=== PATIENT | female | born 1965 | race Caucasian/White ===

== ENCOUNTER 2018-11-01 21:49 | Emergency (ER) | payer SELFPAY ==
[2018-11-01] MEDS ORDERED: cloNIDine 0.1 MG Tab PO ONE ×2 (22:01→22:22)
[2018-11-01] MEDS ORDERED: Ondansetron 4 MG/2 ML SDV IVPUSH ONE (22:02)
[2018-11-01] MEDS ORDERED: HYDROmorphone 1 MG/ML Syringe IVPUSH ONE (22:02)
--- NOTE | 2018-11-01 22:21 | EDM.PDOC ---
ED HPI GENERAL MEDICAL PROBLEM - General Chief Complaint: Back Pain or Injury Stated Complaint: BACK PAIN Time Seen by Provider: 11/01/18 22:01 Source of Information: Reports: Patient History Limitations: Reports: No Limitations - History of Present Illness INITIAL COMMENTS - FREE TEXT/NARRATIVE: This is a 53-year-old female. Onset of mid back pain gradual onset yesterday around 3 PM that has gotten progressively worse. She states it feels like she is having labor pains that is crampy and severe. She doesn't say it feels like it's tearing but it does come and go wax and wane and takes her breath away when it's bad. She apparently has had this in the past was seen here in the ER last year and given some muscle relaxers but she doesn't remember if they helped or not. She is supposed to be on blood pressure medications but hasn't taken them for quite some time. When she first arrived in the ER her blood pressure was 246/110. Denies any recent history of trauma. Her history is somewhat vague and she says she's had this pain several times in the past but hasn't really seen anybody for it other than coming to the ER last year. Patient indicates the pain does not radiate into the front of her chest or any other to the side of her abdomen is just in the mid back area. 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: Endocrine/Metabolic History: Reports: Hypothyroidism (Nazanin's thyroiditis, untreated) Other Endocrine/Metabolic History: nazanin's - Infectious Disease History Infectious Disease History: Reports: Chicken Pox - Past Surgical History GI Surgical History: Reports: Appendectomy (13 years old), Bariatric Procedure ( sleeve gastrectomy 2014), Cholecystectomy (1995) Female Surgical History: Reports: Tubal Ligation (1995) Dermatological Surgical History: Reports: Other (See Below) (Lipoma excised from anterior neck) Social & Family History - Family History Family Medical History: Noncontributory - Caffeine Use Caffeine Use: Reports: Coffee - Living Situation & Occupation Living situation: Reports: Single, Other (With roommates) 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) ED ROS GENERAL - Review of Systems Review Of Systems: See Below Constitutional: Denies: Fever, Chills HEENT: Reports: No Symptoms Respiratory: Reports: No Symptoms Cardiovascular: Denies: Chest Pain Endocrine: Reports: No Symptoms GI/Abdominal: Denies: Abdominal Pain : Reports: No Symptoms Musculoskeletal: Reports: Back Pain Skin: Reports: No Symptoms Neurological: Reports: No Symptoms Psychiatric: Reports: No Symptoms Hematologic/Lymphatic: Reports: No Symptoms ED EXAM, UPPER BACK/NECK PAIN - Physical Exam Exam: See Below Exam Limited By: No Limitations General Appearance: Alert, WD/WN, Mild Distress Eye Exam: Bilateral Eye: Normal Inspection Ears Exam: Normal External Exam Nose Exam: Normal Inspection Throat/Mouth Exam: Normal Inspection, Normal Voice, No Airway Compromise Head Exam: Normocephalic Neck Exam: Full Range of Motion Cardiovascular/Respiratory: Regular Rate, Rhythm, No M/R/G GI/Abdominal: Soft, Non-Tender, Other (No bruits are noted). No: Distended, Guarding, Rigid, Rebound Back Exam: Other (He moves fairly effortlessly but her pain appears to be in the lower thoracic mid back area, when I palpate her paraspinal muscles in the thoracic spine and midline spine I cannot reproduce any pain that she is having she says occasionally really touch it from the outside it seems like it's more on the inside, she is able to sit up in bed and move around but she feels more comfortable lying down) Extremities: Normal Inspection, Normal Range of Motion Neurologic: Alert, Oriented x 3 Psychiatric: Anxious Skin Exam: Normal Color, Warm/Dry Course - Vital Signs Last Recorded V/S: Last Vital Signs Temp 97.6 F 11/01/18 21:56 Pulse 67 11/01/18 23:36 Resp 16 11/01/18 23:36 BP 139/74 11/01/18 23:36 Pulse Ox 91 L 11/01/18 23:36 - Orders/Labs/Meds Orders: Active Orders 24 hr Category Date Time Status Chest Abdomen Pelvis w Cont [CT] Stat Exams 11/01/18 22:14 Taken Sodium Chloride 0.9% [Normal Saline] 100 ml Med 11/01/18 22:45 Active IV ASDIRECTED Medication Orders Sodium Chloride (Normal Saline) 100 mls @ 4 mls/sec IV ASDIRECTED ALLEN Last Admin: 11/01/18 22:54 Dose: 4 mls/sec Labs: Laboratory Tests 11/01/18 11/01/18 11/01/18 Range/Units 22:20 22:20 22:30 WBC 5.94 (3.98-10.04) K/mm3 RBC 5.27 H (3.98-5.22) M/mm3 Hgb 11.5 (11.2-15.7) gm/L Hct 37.6 (34.1-44.9) % MCV 71.3 L (79.4-94.8) fl MCH 21.8 L (25.6-32.2) pg MCHC 30.6 L (32.2-35.5) g/dl RDW Std Deviation 39.6 (36.4-46.3) fL Plt Count 334 (182-369) K/mm3 MPV 10.4 (9.4-12.3) fl Neut % (Auto) 58.9 (34.0-71.1) % Lymph % (Auto) 28.5 (19.3-51.7) % Eddy % (Auto) 8.6 (4.7-12.5) % Eos % (Auto) 3.5 (0.7-5.8) Baso % (Auto) 0.3 (0.1-1.2) % Neut # (Auto) 3.50 (1.56-6.13) K/mm3 Lymph # (Auto) 1.69 (1.18-3.74) K/mm3 Eddy # (Auto) 0.51 H (0.24-0.36) K/mm3 Eos # (Auto) 0.21 (0.04-0.36) K/mm3 Baso # (Auto) 0.02 (0.01-0.08) K/mm3 Manual Slide Review Abnormal smear Sodium 139 (136-145) mEq/L Potassium 4.0 (3.5-5.1) mEq/L Chloride 101 (98-107) mEq/L Carbon Dioxide 27 (21-32) mEq/L Anion Gap 15.0 (5-15) BUN 20 H (7-18) mg/dL Creatinine 0.9 (0.55-1.02) mg/dL Est Cr Clr Drug Dosing 56.52 mL/min Estimated GFR (MDRD) > 60 (>60) mL/min BUN/Creatinine Ratio 22.2 H (14-18) Glucose 86 (74-106) mg/dL Lactic Acid 1.3 (0.4-2.0) mmol/L Calcium 9.6 (8.5-10.1) mg/dL Total Bilirubin 0.3 (0.2-1.0) mg/dL AST 23 (15-37) U/L ALT 27 (14-59) U/L Alkaline Phosphatase 78 (46-116) U/L Total Protein 8.0 (6.4-8.2) g/dl Albumin 4.0 (3.4-5.0) g/dl Globulin 4.0 gm/dL Albumin/Globulin Ratio 1.0 (1-2) Lipase 588 H (73-393) U/L Meds: Medications Generic Name Dose Route Start Last Admin Trade Name Freq PRN Reason Stop Dose Admin Sodium Chloride 100 mls @ 4 mls/sec 11/01/18 22:45 11/01/18 22:54 Normal Saline IV 4 mls/sec ASDIRECTED ALLEN Administration Discontinued Medications Generic Name Dose Route Start Last Admin Trade Name Bebetoq PRN Reason Stop Dose Admin Clonidine HCl 0.3 mg 11/01/18 22:01 Catapres PO 11/01/18 22:02 ONETIME ONE Clonidine HCl 0.2 mg 11/01/18 22:22 11/01/18 22:37 Catapres PO 11/01/18 22:23 0.2 mg NOW ONE Administration Hydromorphone HCl 0.5 mg 11/01/18 22:02 11/01/18 22:36 Dilaudid IVPUSH 11/01/18 22:03 0.5 mg ONETIME ONE Administration Iopamidol 100 ml 11/01/18 22:25 11/01/18 22:53 Isovue-370 (76%) IV 11/01/18 22:26 100 ml ONETIME ONE Administration Ondansetron HCl 4 mg 11/01/18 22:02 11/01/18 22:36 Zofran IVPUSH 11/01/18 22:03 4 mg ONETIME ONE Administration Ondansetron HCl Confirm 11/01/18 22:32 11/01/18 22:38 Zofran Administered 11/01/18 22:33 Not Given Dose 4 mg .ROUTE .[employer] ONE - Radiology Interpretation Free Text/Narrative:: CT scan of the chest and abdomen with IV contrast does not show any acute abnormalities. Her aorta is completely normal her pancreas does not show any significant inflammation there is no obstructing stones she does have a uterine fibroid but no other acute findings. - Re-Assessments/Exams Free Text/Narrative Re-Assessment/Exam: 11/01/18 23:54 The patient is feeling much better not really having any pain presently. I spoke to her regarding the CT scan as well as her lab work that showed an elevated lipase. She did have a small amount of alcohol this evening but she says she normally doesn't drink. I am comfortable letting her go home but I encouraged her to follow up with her doctor for blood pressure medications since it was markedly elevated when she first came to the ER. I also suggested she not drink anymore alcohol on the off chance that the alcohol might have caused a mild pancreatitis causing her pain. She understands. Departure - Departure Time of Disposition: 23:55 Disposition: Home, Self-Care 01 Condition: Good Clinical Impression: Elevated lipase, Elevated blood pressure reading Pancreatitis Qualifiers: Chronicity: acute Pancreatitis type: unspecified pancreatitis type Acute pancreatitis complication: unspecified Qualified Code(s): K85.90 - Acute pancreatitis without necrosis or infection, unspecified Thoracic back pain Qualifiers: Chronicity: acute Back pain laterality: midline Qualified Code(s): M54.6 - Pain in thoracic spine - Discharge Information *PRESCRIPTION DRUG MONITORING PROGRAM REVIEWED*: Not Applicable *COPY OF PRESCRIPTION DRUG MONITORING REPORT IN PATIENT VESTA: Not Applicable Instructions: Acute Pancreatitis, [id number] Referrals: Misha Clemons PA-C [Physician Single Pointed Operator] - Forms: ED Department Discharge Additional Instructions: Rest and sleep as much as possible, take some Tylenol if needed for the pain, no more alcohol until you can see your doctor for reevaluation, you will also need to see your doctor for your blood pressure medications, call the number that we gave you to see if they can help to get some Medicaid insurance, return to the ER if needed - My Orders Last 24 Hours: My Active Orders 11/01/18 22:14 Chest Abdomen Pelvis w Cont [CT] Stat 11/01/18 22:45 Sodium Chloride 0.9% [Normal Saline] 100 ml IV ASDIRECTED - Assessment/Plan Last 24 Hours: My Active Orders 11/01/18 22:14 Chest Abdomen Pelvis w Cont [CT] Stat 11/01/18 22:45 Sodium Chloride 0.9% [Normal Saline] 100 ml IV ASDIRECTED
[2018-11-01] MEDS ORDERED: Iopamidol 755 Mg/ML 200 ML Bottle IV ONE (22:25)
[2018-11-01] MEDS ORDERED: Ondansetron 4 MG/2 ML SDV ONE (22:32)
[2018-11-01] MEDS ORDERED: Sodium Chloride 0.9% 100 ML IV SCH (22:45)
--- NOTE | 2018-11-03 17:56 | CT ---
CT chest Technique: Multiple axial sections through the chest were obtained. Intravenous contrast was utilized. Comparison: No prior chest imaging. Findings: Aorta shows no dissection or aneurysm. Ascending aorta is slightly ectatic with AP dimension of 3.2 cm. Pulmonary arteries show normal opacification. Mediastinum and hilar regions show no adenopathy. No pericardial thickening is seen. Lungs are clear. No acute parenchymal change is seen. No pleural effusions or pneumothorax is seen. Bone window settings were reviewed which show no acute osseous abnormality. Impression: 1. Nothing acute is seen on CT study of the chest. Diagnostic code #2 I agree with preliminary report issued by [facility] ([facility] preliminary report dictated on 11/02/18, 12:46 AM Central Time) CT abdomen and pelvis Technique: Multiple axial sections were obtained from above the dome of the diaphragm inferiorly to the pubic symphysis. Intravenous contrast was utilized. No oral contrast has been given. Comparison: No prior abdominal imaging is available. Findings: Small hiatal hernia is seen. Aorta shows no aneurysm. No dissection is seen. Liver contains no focal abnormality. Surgical clips are seen from prior cholecystectomy. Spleen appears within normal limits. Adrenal glands show no nodule. Pancreas appears within normal limits. Kidneys show symmetric contrast enhancement without hydronephrosis or mass. No retroperitoneal adenopathy or mesenteric abnormalities are seen. Enlarged uterus is seen likely representing fibroid change. No free fluid or inflammatory change is seen. Bone window settings were reviewed which show disc space narrowing at L4-L5. Incidental surgical clips are seen within the pelvis. Impression: 1. Incidental findings. Nothing acute is identified on CT study of the abdomen and pelvis. Nothing acute is identified. Diagnostic code #2 I agree with preliminary report issued by [facility] ([facility] preliminary report dictated on 11/02/18, 12:46 AM Central Time)
== END 2018-11-02 00:12 | disposition home or self-care (01) ==
LOC: JD.ED 21:49
DX: K85.90 Acute pancreatitis without necrosis or infection, unspecified (principal); M54.6 Pain in thoracic spine; R79.89 Other specified abnormal findings of blood chemistry; I10 Essential (primary) hypertension; E03.9 Hypothyroidism, unspecified; Z88.5 Allergy status to narcotic agent; Z79.899 Other long term (current) drug therapy
CPT/HCPCS: 36415; 71260; 74177; 80053; 83605; 83690; 85025; 96374; 96375; 99284; A9270; J1170; J2405; J7030; Q9967

== ENCOUNTER 2019-06-01 13:58 | Emergency (ER) | payer MEDICAID ==
[2019-06-01] MEDS ORDERED: HYDROmorphone 0.5 MG/0.5 ML Syringe IM ONE (14:31)
--- NOTE | 2019-06-01 14:48 | EDM.PDOC ---
ED HPI GENERAL MEDICAL PROBLEM - General Chief Complaint: Upper Extremity Injury/Pain Stated Complaint: LT ARM INJURY Time Seen by Provider: 06/01/19 14:08 Source of Information: Reports: Patient, RN Notes Reviewed History Limitations: Reports: No Limitations - History of Present Illness INITIAL COMMENTS - FREE TEXT/NARRATIVE: Patient is a 53-year-old female who presents to the ED for evaluation of left shoulder injury. The patient states that roughly 3 hours ago, she was in her driveway walking, when she fell as she slipped on the ice. She notes that she fell onto her butt, and caught herself with both hands. At this time she did have instant pain into her left shoulder, she states that now when she moves her left arm, she can hear a pop. Patient does have tramadol at home, did try to take 1 of these for pain relief, and has been using a heating pad on the left shoulder, however this does not seem to be helping much. Patient notes that the arm feels best if she keeps her left elbow flexed in a 90 degree position, and keeps the arm close to her body. She denies any numbness or tingling distal to the injury, she did not hit her head, she has no elbow or neck pain and she did further denies any chest pain or shortness of breath. Patient notes that she already has a prior deficit in her right shoulder, where she has a rotator cuff tear. She notes that she is right-hand dominant. Her regular provider is Dr. Cedeno. 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: Endocrine/Metabolic History: Reports: Hypothyroidism Other Endocrine/Metabolic History: nazanin's - Infectious Disease History Infectious Disease History: Reports: Chicken Pox - Past Surgical History HEENT Surgical History: Reports: Other (See Below) Other HEENT Surgeries/Procedures: fatty tumor removed from throat GI Surgical History: Reports: Appendectomy, Bariatric Procedure, Cholecystectomy Female Surgical History: Reports: Tubal Ligation Dermatological Surgical History: Reports: Other (See Below) Social & Family History - Family History Family Medical History: Noncontributory - Tobacco Use Smoking Status *Q: Current Every Day Smoker Years of Tobacco use: 4 Packs/Tins Daily: 1 - Caffeine Use Caffeine Use: Reports: Coffee - Recreational Drug Use Recreational Drug Use: Yes Recreational Drug Type: Reports: Marijuana/Hashish Other Recreational Drug Type: She smokes one bowl every night. 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 Denies: Neck Pain, Arm Pain, Back Pain, Hand Pain, Joint Swelling (no obvious swelling to Left shoulder ) Skin: Denies: Bruising Neurological: Denies: Numbness, Tingling ED EXAM, GENERAL - Physical Exam Exam: See Below Exam Limited By: No Limitations General Appearance: Alert, WD/WN, No Apparent Distress Throat/Mouth: Normal Inspection, Normal Lips, Normal Teeth, Normal Gums, Normal Oropharynx, Normal Voice, No Airway Compromise Head: Atraumatic, Normocephalic Neck: Normal Inspection Respiratory/Chest: No Respiratory Distress, Lungs Clear, Normal Breath Sounds, No Accessory Muscle Use, Chest Non-Tender Cardiovascular: Normal Peripheral Pulses, Regular Rate, Rhythm, No Murmur Peripheral Pulses: 3+: Radial (L), Radial (R) Extremities: Normal Inspection, Normal Capillary Refill, Limited Range of Motion (of left shoulder d/t pain). No: Arm Pain Neurological: Alert, Oriented, Normal Cognition, No Motor/Sensory Deficits Psychiatric: Normal Affect, Normal Mood Skin Exam: Warm, Dry, Intact, Normal Color, No Rash Course - Vital Signs Last Recorded V/S: Last Vital Signs Temp 99.6 F 06/01/19 14:12 Pulse 92 06/01/19 14:12 Resp 18 06/01/19 14:12 BP 190/102 H 06/01/19 14:12 Pulse Ox 99 06/01/19 14:12 - Orders/Labs/Meds Orders: Active Orders 24 hr Category Date Time Status Shoulder Comp Lt [CR] Stat Exams 06/01/19 14:31 Ordered DME for Discharge [COMM] Routine Oth 06/01/19 14:49 Ordered Meds: Medications Discontinued Medications Generic Name Dose Route Start Last Admin Trade Name Radu PRN Reason Stop Dose Admin Hydromorphone HCl 0.5 mg 06/01/19 14:31 06/01/19 14:36 Dilaudid IM 06/01/19 14:32 0.5 mg ONETIME ONE Administration - Re-Assessments/Exams Free Text/Narrative Re-Assessment/Exam: 06/01/19 14:48 Patient presents to the ED for a left shoulder injury. X-rays were done, and demonstrate no obvious sign of any fracture or bony abnormality of the shoulder joint itself. AC joint also looks within normal limits. Shoulder does not look out of place at all. I did order 0.5 mg IM Dilaudid for pain management. Will have Dr. García look at the films, before we discharge the patient home. Departure - Departure Time of Disposition: 14:50 Disposition: Home, Self-Care 01 Condition: Fair Clinical Impression: Injury of left shoulder Qualifiers: Encounter type: initial encounter Qualified Code(s): S49.92XA - Unspecified injury of left shoulder and upper arm, initial encounter - Discharge Information *PRESCRIPTION DRUG MONITORING PROGRAM REVIEWED*: Yes *COPY OF PRESCRIPTION DRUG MONITORING REPORT IN PATIENT VESTA: No Instructions: How to Use a Sling, [id number] Referrals: Brian Cedeno MD [Primary Care Provider] - Forms: ED Department Discharge Additional Instructions: You have been evaluated in the ED for your left shoulder injury. Your x-ray demonstrated no obvious fracture or acute bony abnormality of the Left shoulder joint. Please use ice as tolerated to the affected area. You may take Tylenol 500 mg or ibuprofen 600mg q6 hrs for pain relief. Please do so until you have a tolerable level of pain with activity. Do not exceed 4000mg tylenol, Do not exceed 3200mg ibuprofen in a 24 hour time period. You were given a prescription for a strong pain medication, hydrocodone/ acetaminophen 5/325, please take 1 tab every 6 hours as needed for pain not relieved by Tylenol or ibuprofen alone. Please note this does contain Tylenol in it, so do not take more than 4000 mg in a 24-hour time span. These medications can be addictive, so please take as few as possible to achieve adequate pain control. These meds can also be quite constipating, recommend that you increase your oral fluid intake and take a stool softener like MiraLAX while taking these medications. Please call Ortho for follow-up and further evaluation Dr. Rosado is our orthopedic surgeon, his office number is [phone]. Please call and set up an appointment as soon as possible for further management. Please return to ED if your symptoms should change or worsen. - My Orders Last 24 Hours: My Active Orders 06/01/19 14:31 Shoulder Comp Lt [CR] Stat 06/01/19 14:49 DME for Discharge [COMM] Routine - Assessment/Plan Last 24 Hours: My Active Orders 06/01/19 14:31 Shoulder Comp Lt [CR] Stat 06/01/19 14:49 DME for Discharge [COMM] Routine
--- NOTE | 2019-06-02 09:12 | CR ---
Left shoulder: Three views of the left shoulder were obtained. Comparison: No prior shoulder imaging. Joint space narrowing is noted within the acromioclavicular joint with superior spurring and mild inferior spurring. No acute fracture, dislocation or other bony abnormality is identified. Impression: 1. Degenerative change within the acromioclavicular joint. 2. Left shoulder study is otherwise unremarkable. Diagnostic code #2 This report was dictated in [place] Standard Time
== END 2019-06-01 15:28 | disposition home or self-care (01) ==
LOC: JD.ED 13:58
DX: S49.92XA Unspecified injury of left shoulder and upper arm, initial encounter (principal); I10 Essential (primary) hypertension; F17.210 Nicotine dependence, cigarettes, uncomplicated; Z88.5 Allergy status to narcotic agent; Z79.899 Other long term (current) drug therapy; W00.0XXA Fall on same level due to ice and snow, initial encounter; Y93.01 Activity, walking, marching and hiking; Y92.89 Other specified places as the place of occurrence of the external cause
CPT/HCPCS: 73030; 96372; 99283; J1170

== ENCOUNTER 2020-04-12 09:42 | Day surgery (SDC) | payer MEDICAID ==
--- NOTE | 2020-04-06 13:40 | PCM.SN.2 ---
- Free Text/Narrative Note: Date: 04/12/2020 Time Out: 1050 Start: 1111 Stop: 1111 Surgical Procedure: Right shoulder video arthroscopy with rotator cuff repair Diagnosis Right rotator cuff tear Current Procedure: Right interscalene block under US guidance for postoperative pain control requested by Dr. Rosado. Patient chart reviewed, risk/benefits discussed with patient, consent obtained. Patient positioned supine, monitors/alarms on, oxygen placed via nasal cannula at 2 LPM. IV sedation administered: Versed 2mg IV, Fentanyl 50mcg IV given in preop prior to block placement. Right shoulder prepped with two chloropreps. Sterile drapes placed with aseptic technique noted. Under US guidance, right subclavian artery visualized along with the right brachial plexus. Plexus followed up to C6 cricoid level, and area localized with 2mls of 1% lidocaine. 22gauge 2 inch stimiplex needle advanced under US with 0.6mV with stimulation of biceps noted. Good stimulation noted with decreased voltage and absent at 0.4mVs. 1ml of Normal Saline injected with loss of stimulation noted to confirm needle not placed intraneurally. Incremental dosing of 5mls with negative aspiration noted prior to each injection of 0.5% ropivacaine with 1:200,000 epinephrine. Total volume=30mls. Please refer to nurses noted for vital signs. Yvette Bryant CRNA
--- NOTE | 2020-04-06 14:51 | PCM.PREANE ---
Preanesthetic Assessment - Procedure Proposed Procedure: Right SVA with rotator cuff repair - Anesthesia/Transfusion/Family Hx Anesthesia History: Prior Anesthesia Without Reaction Family History of Anesthesia Reaction: No Transfusion History: No Prior Transfusion(s) Intubation History: Unknown - Review of Systems General: No Symptoms Pulmonary: No Symptoms (smoker: less than pack per day times 3 years/Marijuana: 7 times/week, ETOH: occasionally) Cardiovascular: No Symptoms (HTN), Palpitations (with gluten ingestion), Dyspnea on Exertion Gastrointestinal: No Symptoms (GERD-controlled/History of gastric bypass-sleeve) Neurological: No Symptoms (History of Iron deficiency anemia: hgb=12) Other: Reports: Thyroid Problems (history of hasimoto thyroiditis) - Physical Assessment NPO Status Date: 04/11/20 NPO Status Time: 23:30 Vital Signs: HR:81 B/P:146/74 Resp:16 Temp:97.4 Sat:99% Height: 1.57 m Weight: 73 kg ASA Class: 2 Mental Status: Alert & Oriented x3 Airway Class: Mallampati = 2 Dentition: Reports: Normal Dentition, Caries Thyro-Mental Finger Breadths: 3 Mouth Opening Finger Breadths: 3 ROM/Head Extension: Full Lungs: Clear to Auscultation, Normal Respiratory Effort Cardiovascular: Regular Rate, Regular Rhythm, No Murmurs - Lab Values: Laboratory Last Values SARS-CoV-2 (PCR) Not detected (NOT DETECT) 03/23/20 12:45 MRSA (PCR) Negative 03/23/20 13:50 All labs reviewed and noted and within acceptable ranges to proceed with scheduled procedure. - Imaging/EKG Impressions: EKG: SR rate=74, probable left atrial enlargement, left ventricular hypertrophy, old anterior infarct CXR: negative - Allergies Allergies/Adverse Reactions: Allergies Allergy/AdvReac Type Severity Reaction Status Date / Time codeine Allergy Hives Verified 04/09/20 16:52 - Acknowledgements Anesthesia Type Planned: General Anesthesia (Right ISB under US guidance for post operative pain control requested by Dr. 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: Endocrine/Metabolic History: Reports: Hypothyroidism Other Endocrine/Metabolic History: nazanin's - Infectious Disease History Infectious Disease History: Reports: Chicken Pox - Past Surgical History HEENT Surgical History: Reports: Other (See Below) Other HEENT Surgeries/Procedures: fatty tumor removed from throat GI Surgical History: Reports: Appendectomy, Bariatric Procedure, Cholecystectomy Female Surgical History: Reports: Tubal Ligation Dermatological Surgical History: Reports: Other (See Below) - HOME MEDS Home Medications: Home Meds Pantoprazole [ProTONIX] 1 tab PO DAILY 06/01/19 [History] traMADol [Ultram] 1 tab PO QID PRN 06/01/19 [History] Ferrous Sulfate [Iron] 325 mg PO DAILY 04/09/20 [History] Folic Acid 1 mg PO DAILY 04/09/20 [History] Hydrochlorothiazide/Lisinopril [Lisinopril/HCTZ 20-12.5 MG] 1 tab PO DAILY 04/09/20 [History] amLODIPine [Norvasc] 10 mg PO DAILY 04/09/20 [History] Acetaminophen/HYDROcodone [[place] 325-5 MG] 1 - 2 tab PO Q6H PRN #30 tablet 04/12/20 [Rx] Cyclobenzaprine [Flexeril] 10 mg PO BID PRN #20 tab 04/12/20 [Rx] - CURRENT (IN HOUSE) MEDS Current Meds: Current Medications Lactated Ringer's (Ringers, Lactated) 1,000 mls @ 125 mls/hr IV ASDIRECTED ALLEN Stop: 04/08/20 23:00 Lidocaine/Sodium Bicarbonate (Buffered Lidocaine 1% In Ns 8.4%) 0.25 ml IDERM ONETIME PRN PRN Reason: Prior to IV Start Stop: 04/08/20 18:00 Sodium Chloride (Saline Flush) 10 ml FLUSH ASDIRECTED PRN PRN Reason: Keep Vein Open Stop: 04/08/20 18:00 Discontinued Medications Lactated Ringer's (Ringers, Lactated) 1,000 mls @ 125 mls/hr IV ASDIRECTED ALLEN Stop: 03/25/20 23:00 Lidocaine/Sodium Bicarbonate (Buffered Lidocaine 1% In Ns 8.4%) 0.25 ml IDERM ONETIME PRN PRN Reason: Prior to IV Start Stop: 03/25/20 18:00 Sodium Chloride (Saline Flush) 10 ml FLUSH ASDIRECTED PRN PRN Reason: Keep Vein Open Stop: 03/25/20 18:00
[~2020-04-12 09:42] MED LIST: Dexamethasone 4 MG/ML 5 ML MDV ONE; EPINEPHrine 1 MG/ML 30 ML MDV IRR SCH; EPINEPHrine 1 MG/ML SDV ONE; Lactated Ringers 1,000 ML IV SCH; Lactated Ringers 1,000 ML ONE; Lidocaine 1% 2 ML ONE; Lidocaine 1% 4 ML ONE; Lidocaine 1%/Sod Bicarbonate in NS 8.4% 1 ML Syringe IDERM PRN; Midazolam 1 MG/ML 2 ML SDV ONE; Ondansetron 4 MG/2 ML SDV ONE; Propofol 200 MG/20 ML SDV ONE; Rocuronium 50 MG/5 ML Vial ONE; Ropivacaine 0.5% 5 MG/ML 30 ML SDV ONE; Sodium Chloride 0.9% 10 ML Syringe FLUSH PRN; ceFAZolin 1 GM Vial ONE; fentaNYL 250 MCG/5 ML SDV ONE
[2020-04-12] MEDS ORDERED: HYDROmorphone 0.5 MG/0.5 ML Syringe IVPUSH PRN (12:04)
[2020-04-12] MEDS ORDERED: Ondansetron 4 MG/2 ML SDV IVPUSH PRN (12:04)
[2020-04-12] MEDS ORDERED: diphenhydrAMINE 50 MG/ML SDV IVPUSH PRN (12:04)
[2020-04-12] MEDS ORDERED: ePHEDrine 50 MG/ML SDV IVPUSH PRN (12:04)
[2020-04-12] MEDS ORDERED: fentaNYL 100 MCG/2 ML SDV IVPUSH PRN (12:04)
[2020-04-12] MEDS ORDERED: Albuterol 0.083% 2.5 MG/3 ML Neb Soln NEB PRN (12:07)
[2020-04-12] MEDS ORDERED: HYDROmorphone 0.5 MG/0.5 ML Syringe ONE (13:08)
[2020-04-12] MEDS ORDERED: Midazolam 1 MG/ML 2 ML SDV IVPUSH PRN ×2 (13:40→13:42)
--- NOTE | 2020-04-12 13:44 | PCM.POSTAN ---
POST ANESTHESIA ASSESSMENT - MENTAL STATUS Mental Status: Alert - VITAL SIGNS Vital Signs: Last Vital Signs Temp 97 04/12/20 1335 Pulse 94 04/12/20 1335 Resp 20 04/12/20 1335 BP 156/62 04/12/20 1335 Pulse Ox 100 04/12/20 1335 - RESPIRATORY Respiratory Status: Respiratory Rate WNL, Airway Patent, O2 Saturation Stable, Supplemental Oxygen - CARDIOVASCULAR CV Status: Pulse Rate WNL, Blood Pressure Stable - GASTROINTESTINAL GI Status: No Symptoms - POST OP HYDRATION Hydration Status: Adequate & Stable
--- NOTE | 2020-04-12 14:23 | PCM48HPAN ---
Post Anesthesia Note - EVALUATION WITHIN 48HRS OF ANESTHETIC Vital Signs in Normal Range: Yes Patient Participated in Evaluation: Yes Respiratory Function Stable: Yes Airway Patent: Yes Cardiovascular Function Stable: Yes Hydration Status Stable: Yes Pain Control Satisfactory: Yes Nausea and Vomiting Control Satisfactory: Yes Mental Status Recovered: Yes Vital Signs: Last Vital Signs Temp 36.1 C 04/12/20 13:35 Pulse 75 04/12/20 11:11 Resp 12 04/12/20 14:15 BP 105/63 04/12/20 14:15 Pulse Ox 94 L 04/12/20 14:15
--- NOTE | 2020-04-19 17:23 | PCM.OPNOTE ---
- General Post-Op/Procedure Note Date of Surgery/Procedure: 04/12/20 Operative Procedure(s): right shoulder video arthroscopy with rotator cuff repair, subacromail decompression and extensive debridement Pre Op Diagnosis: right shoulder rotator cuff tear with impingement and synovitis Post-Op Diagnosis: Same Anesthesia Technique: General ET Tube, Regional Block Primary Surgeon: Dennis Rosado Anesthesia Provider: Yvette Bryant Drum Operator: Melba Cavazos in mLs: 5 Complications: None Condition: Good
--- NOTE | 2020-04-21 15:22 | OR ---
DATE OF OPERATION: 04/12/2020 SURGEON: Dennis Rosado MD OPERATION PERFORMED: Right shoulder video arthroscopy, rotator cuff repair, subacromial decompression, and extensive debridement. PREOPERATIVE DIAGNOSIS: Right shoulder rotator cuff tear with impingement and synovitis. POSTOPERATIVE DIAGNOSIS: Right shoulder rotator cuff tear with impingement and synovitis. ANESTHESIA: General endotracheal intubation with regional interscalene block. ANESTHESIA PROVIDER: Yvette Bryant CRNA. LADLE HANDLER: Melba Cavazos PA-C ESTIMATED BLOOD LOSS: 5 mL. COMPLICATIONS: None. CONDITION: Stable. DESCRIPTION OF PROCEDURE: The patient was identified in the preoperative holding area, proper site was marked and identified by the surgeon. The patient was taken back to the operative theater, where after adequate anesthesia, the patient was placed in the lazy left lateral decubitus position. A wedge was placed posteriorly. All bony prominences were well padded. The patient was secured to the table. Right upper extremity was then sterilely prepped and draped in the usual sterile fashion. OR time-out was performed. The patient received 2 g IV Ancef. At this time, 12 pounds of traction was applied to the right upper extremity. Standard posterior incision was made. Scope trocar was introduced to the glenohumeral joint. With the use of a spinal needle, anterior portal was created from an outside-in technique. The biceps was noted at this time to be significantly frayed as well as a partial tear. Subscapularis tendon was intact. The undersurface of the rotator cuff showed large rotator cuff tear of the supraspinatus. The patient had no signs of chondromalacia. At this time, a partial synovectomy was performed as well as a biceps tenotomy and resection of any loose remaining labrum. After this was completed, attention was turned to subacromial space. The patient was noted to have a large amount of bursitis as well as synovitis and an extensive debridement was done of the subacromial space. A good bony bleeding bed was then prepared for the rotator cuff repair over the greater tuberosity using a 4.0 full-radius garry. At this time, 2 Carine medial row triple-loaded anchors were placed and the 12 limbs of suture were placed anterior to posterior in standard fashion. At this time, 2 Peculiar lateral row anchors were then placed. Tension was applied across the repair site and the 2 anchors were placed, one anterior and one posterior, for cross galvin conversion of the tear and compression and had good anatomic yarsanism of the tear. At this time, a subacromial decompression as well as an acromioplasty was performed using a 4.0 full-radius garry back to a smooth border with the posterior acromion. Excess saline was drained from the shoulder. 3-0 nylon suture was used for closure of the skin. The patient had a sterile soft dressing and a pillow sling applied and was sent to PACU in stable condition. MMODAL /[id number]
== END 2020-04-12 15:55 | disposition home or self-care (01) ==
LOC: JD.SDS 09:42
PROVIDERS: ATTEND Orthopaedic Surgery
DX: M75.111 Incomplete rotator cuff tear or rupture of right shoulder, not specified as traumatic (principal); M25.811 Other specified joint disorders, right shoulder; M65.811 Other synovitis and tenosynovitis, right shoulder; I10 Essential (primary) hypertension; G89.18 Other acute postprocedural pain; K21.9 Gastro-esophageal reflux disease without esophagitis; E03.9 Hypothyroidism, unspecified; Z01.812 Encounter for preprocedural laboratory examination; Z20.828 Contact with and (suspected) exposure to other viral communicable diseases; Z79.899 Other long term (current) drug therapy; Z88.5 Allergy status to narcotic agent; Z98.890 Other specified postprocedural states; Z87.891 Personal history of nicotine dependence
CPT/HCPCS: 29823; 29826; 29827; 36415; 80053; 87635; 87641; C1713; J0171; J0690; J1100; J1170; J2001; J2250; J2370; J2405; J2704; J2710; J2795; J3010; J7120; 01630; 64415; U0002

== ENCOUNTER 2021-04-18 17:41 | Emergency (ER) | payer MEDICAID ==
[2021-04-18] MEDS ORDERED: Ketorolac 15 MG/ML SDV IVPUSH ONE (20:10)
[2021-04-18] MEDS ORDERED: fentaNYL 2,500 MCG in Sodium Chloride 0.9% 200 ML IV SCH (20:15)
[2021-04-18] MEDS ORDERED: propofoL 100 ML IV SCH (20:15)
--- NOTE | 2021-04-18 22:16 | EDM.PDOC ---
ED HPI GENERAL MEDICAL PROBLEM - General Chief Complaint: Back Pain or Injury Stated Complaint: BACK PAIN Time Seen by Provider: 04/18/21 20:00 Source of Information: Reports: Patient History Limitations: Reports: No Limitations - History of Present Illness INITIAL COMMENTS - FREE TEXT/NARRATIVE: Patient is a 55-year-old smoker presenting with a chief complaint of mid thoracic back pain. Patient states she has had this pain in the past over the few years. She states it seems to be aggravated today. Patient concerned that her blood pressure is elevated and this is causing her back to be achy and painful. Patient denies any chest pain, shortness of breath, pain with deep breathing, dizziness, palpitations. Patient does have mild cough for the past few weeks. She otherwise denies any numbness or tingling or specific injuries. 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 (see below) Other Treatments TRAFFIC TECHNICIAN: childrens motrin this morning Upper Back Pain Score (Numeric/FACES): 10 - Related Data Allergies Allergy/AdvReac Type Severity Reaction Status Date / Time codeine Allergy Hives Verified 04/09/20 16:52 Home Meds: Home Meds lisinopriL [Lisinopril] 10 mg PO DAILY 04/18/21 [History] methocarbamoL [Robaxin] 500 mg PO TID PRN #30 tab 04/18/21 [Rx] Past Medical History HEENT History: Reports: None Cardiovascular History: Reports: Hypertension Respiratory History: Reports: None Gastrointestinal History: Reports: GERD, Other (See Below) Other Gastrointestinal History: epigastric pain Genitourinary History: Reports: None 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: Musculoskeletal History: Reports: Other (See Below) Other Musculoskeletal History: left shoulder fracture Neurological History: Reports: None Psychiatric History: Reports: None Endocrine/Metabolic History: Reports: Hypothyroidism Other Endocrine/Metabolic History: nazanin's Hematologic History: Reports: Anemia, Iron Deficiency Immunologic History: Reports: None Oncologic (Cancer) History: Reports: None Dermatologic History: Reports: Other (See Below) Other Dermatologic History: fatty mass removal - Infectious Disease History Infectious Disease History: Reports: Chicken Pox - Past Surgical History Head Surgeries/Procedures: Reports: None HEENT Surgical History: Reports: Other (See Below) Other HEENT Surgeries/Procedures: fatty tumor removed from throat Cardiovascular Surgical History: Reports: None Respiratory Surgical History: Reports: None GI Surgical History: Reports: Appendectomy, Bariatric Procedure, Cholecystectomy Other GI Surgeries/Procedures: gastric sleeve Female Surgical History: Reports: Tubal Ligation Endocrine Surgical History: Reports: None Neurological Surgical History: Reports: None Oncologic Surgical History: Reports: None Dermatological Surgical History: Reports: Other (See Below) Social & Family History - Family History Family Medical History: No Pertinent Family History - Tobacco Use Tobacco Use Status *Q: Current Every Day Tobacco User Years of Tobacco use: 1 Packs/Tins Daily: 1 - Caffeine Use Caffeine Use: Reports: Coffee, Tea - Recreational Drug Use Recreational Drug Use: No - Living Situation & Occupation Living situation: Reports: Single, Other (With roommates) Occupation: Employed ([employer]) ED ROS GENERAL - Review of Systems Review Of Systems: See Below Free Text/Narrative/Comment: In addition to that documented in the HPI above, the additional ROS was obtained: Constitutional: Denies fevers or chills Eyes: Denies vision changes ENMT: Denies sore throat CV: Denies chest pain Resp: Denies SOB GI: Denies vomiting or diarrhea : Denies painful urination MSK: Denies recent trauma Skin: Denies new rashes Neuro: Denies new numbness or tingling or weakness Endocrine: Denies unexpected weight loss Heme: Denies bleeding disorders ED EXAM,LOWER BACK PAIN/INJURY - Physical Exam Exam: See Below Text/Narrative:: I have reviewed the triage vital signs Const: Well nourished, well developed, appears stated age Eyes: Pupils Equal and reactive to light bilaterally, no conjunctival injection HENT: No signs of trauma or swelling, Neck supple without meningismus CV: Regular Rate Rhythm, Warm, well-perfused extremities RESP: Unlabored respiratory effort GI: soft, non-tender, non-distended, no masses MSK: No midline cervical, thoracic or lumbar spinal tenderness to palpation. no gross deformities appreciated Skin: Warm, dry. 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 Sensation and motor function of extremities grossly intact. Psych: Appropriate mood and affect. Course - Vital Signs Last Recorded V/S: Last Vital Signs Temp 36.8 C 04/18/21 18:16 Pulse 76 04/18/21 18:16 Resp 16 04/18/21 18:16 BP 207/101 H 04/18/21 18:16 Pulse Ox 97 04/18/21 18:16 - Orders/Labs/Meds Orders: Active Orders 24 hr Category Date Time Status Chest 1V Frontal [CR] Stat Exams 04/18/21 19:47 Taken Labs: Laboratory Tests 04/18/21 04/18/21 04/18/21 Range/Units 18:51 18:51 21:07 WBC 5.00 (3.98-10.04) K/mm3 RBC 4.80 (3.98-5.22) M/mm3 Hgb 12.5 (11.2-15.7) gm/dl Hct 40.1 (34.1-44.9) % MCV 83.5 D (79.4-94.8) fl MCH 26.0 (25.6-32.2) pg MCHC 31.2 L (32.2-35.5) g/dl RDW Std Deviation 47.8 H (36.4-46.3) fL Plt Count 284 (182-369) K/mm3 MPV 11.0 (9.4-12.3) fl Neut % (Auto) 51.6 (34.0-71.1) % Lymph % (Auto) 35.2 (19.3-51.7) % [place] % (Auto) 8.2 (4.7-12.5) % Eos % (Auto) 4.2 (0.7-5.8) Baso % (Auto) 0.6 (0.1-1.2) % Neut # (Auto) 2.58 (1.56-6.13) K/mm3 Lymph # (Auto) 1.76 (1.18-3.74) K/mm3 [place] # (Auto) 0.41 H (0.24-0.36) K/mm3 Eos # (Auto) 0.21 (0.04-0.36) K/mm3 Baso # (Auto) 0.03 (0.01-0.08) K/mm3 Sodium 139 (136-145) mEq/L Potassium 3.9 (3.5-5.1) mEq/L Chloride 105 (98-107) mEq/L Carbon Dioxide 27 (21-32) mEq/L Anion Gap 10.9 (5-15) BUN 32 H (7-18) mg/dL Creatinine 0.9 (0.55-1.02) mg/dL Est Cr Clr Drug Dosing 55.20 mL/min Estimated GFR (MDRD) > 60 (>60) mL/min BUN/Creatinine Ratio 35.6 H (14-18) Glucose 118 H (70-99) mg/dL Calcium 8.5 (8.5-10.1) mg/dL Total Bilirubin 0.3 (0.2-1.0) mg/dL AST 16 (15-37) U/L ALT 21 (14-59) U/L Alkaline Phosphatase 73 (46-116) U/L Troponin I < 0.017 (0.00-0.056) ng/mL Total Protein 6.7 (6.4-8.2) g/dl Albumin 3.4 (3.4-5.0) g/dl Globulin 3.3 gm/dL Albumin/Globulin Ratio 1.0 (1-2) SARS-CoV-2 RNA ([facility]) Negative (NEGATIVE) Meds: Medications Discontinued Medications Generic Name Dose Route Start Last Admin Trade Name Freq PRN Reason Stop Dose Admin Ketorolac Tromethamine 15 mg 04/18/21 20:10 04/18/21 21:05 Ketorolac 15 Mg/Ml Sdv IVPUSH 04/18/21 20:11 15 mg ONETIME ONE Administration Departure - Departure Time of Disposition: 22:16 Disposition: Home, Self-Care 01 Clinical Impression: Thoracic back pain - Discharge Information Prescriptions: methocarbamoL [Robaxin] 500 mg PO TID PRN #30 tab PRN Reason: Pain Instructions: Acute Back Pain, Adult Referrals: Brian Cedeno MD [Primary Care Provider] - Forms: ED Department Discharge Sepsis Event Note (ED) - Focused Exam Vital Signs: Vital Signs Temp Pulse Resp BP Pulse Ox 04/18/21 18:16 36.8 C 76 16 207/101 H 97 - My Orders Last 24 Hours: My Active Orders 04/18/21 19:47 Chest 1V Frontal [CR] Stat - Assessment/Plan Last 24 Hours: My Active Orders 04/18/21 19:47 Chest 1V Frontal [CR] Stat Assessment:: Patient is 55-year-old female presented to the emergency room with back pain. Patient blood pressure noted to be elevated. However, not complaining of any chest pain or strokelike symptoms. Laboratory studies were performed to evaluate for endorgan damage as well as any signs of infection. Laboratory studies all within normal limits. Chest x-ray unremarkable. Back pain is felt to be musculoskeletal in nature. Patient given pain medication and instructed to follow-up with her primary care physician in the next 1 to 2 days regards to blood pressure management. All questions were addressed and answered. Patient given appropriate return precautions. Patient agrees with plan.
--- NOTE | 2021-04-19 07:25 | CR ---
Chest: Portable view of the chest was obtained. Comparison: Prior chest CT of 11/01/18 and chest x-ray of 05/20/18. Heart size is normal. Mediastinum is also within normal limits. Lungs are clear with no acute parenchymal changes seen. Bony structures show nothing acute. Impression: 1. Nothing acute is appreciated on portable chest x-ray. Diagnostic code #1
== END 2021-04-18 22:31 | disposition home or self-care (01) ==
LOC: JD.ED 17:41
DX: M54.6 Pain in thoracic spine (principal); I10 Essential (primary) hypertension; Z72.0 Tobacco use; Z88.5 Allergy status to narcotic agent; Z79.899 Other long term (current) drug therapy; Z20.822 Contact with and (suspected) exposure to COVID-19
CPT/HCPCS: 36415; 71045; 80053; 84484; 85025; 87635; 96374; 99283; J1885; U0002

== ENCOUNTER 2021-09-04 22:12 | Emergency (ER) | payer MEDICAID | END 2021-09-05 06:10 | disposition home or self-care (01) | LOC: JD.ED 22:12 | DX: F10.129 Alcohol abuse with intoxication, unspecified (principal); I10 Essential (primary) hypertension; K21.9 Gastro-esophageal reflux disease without esophagitis; E03.9 Hypothyroidism, unspecified; Z88.5 Allergy status to narcotic agent; Z79.4 Long term (current) use of insulin; Z79.899 Other long term (current) drug therapy; Y90.5 Blood alcohol level of 100-119 mg/100 ml | CPT/HCPCS: 36415; 80053; 80307; 85025; 99284 ==

== ENCOUNTER 2022-10-09 17:18 | Emergency (ER) | payer MEDICAID | END 2022-10-09 19:39 | disposition home or self-care (01) | LOC: JD.ED 17:18 | DX: R79.89 Other specified abnormal findings of blood chemistry (principal); I10 Essential (primary) hypertension; Z88.5 Allergy status to narcotic agent; Z79.899 Other long term (current) drug therapy; Z90.49 Acquired absence of other specified parts of digestive tract | CPT/HCPCS: 36415; 70450; 70450-26; 84443; 84484; 93005; 93010; 99283; 99284 ==

== ENCOUNTER 2022-10-19 17:01 | Emergency (ER) | payer MEDICAID ==
[2022-10-19] MEDS ORDERED: Sodium Chloride 0.9% 10 ML Syringe FLUSH PRN (17:27)
[2022-10-19] MEDS ORDERED: Aspirin 81 MG Tab.Chew PO ONE (17:27)
[2022-10-19] MEDS ORDERED: Heparin Sodium 5,000 Units/ML Vial IVPUSH ONE (18:49)
[2022-10-19] MEDS ORDERED: Heparin Sodium/D5W 25,000 UNITS/500 ML BAG IV SCH (19:00)
== END 2022-10-19 19:50 ==
LOC: JD.ED 17:01
DX: I21.4 Non-ST elevation (NSTEMI) myocardial infarction (principal); I10 Essential (primary) hypertension; E78.00 Pure hypercholesterolemia, unspecified; Z88.5 Allergy status to narcotic agent; Z79.899 Other long term (current) drug therapy
CPT/HCPCS: 36415; 71045; 80053; 84484; 85025; 85379; 93005; 96365; 99285; A9270; J1644; J3490; 93010

== ENCOUNTER 2024-04-04 21:26 | Emergency (ER) | payer MEDICAID ==
[2024-04-04] MEDS ORDERED: Sodium Chloride 0.9% 10 ML Syringe FLUSH PRN (22:13)
[2024-04-04 22:41] LABS: BASOPHILS PERCENT AUTO 0.5 % (0.0-1.0); EOSINOPHILS ABSOLUTE AUTO 0.1 K/mm3 (0.0-0.4); EOSINOPHILS PERCENT AUTO 2.5 % (0.0-6.0); HEMATOCRIT 41.1 % (37.0-47.0); HEMOGLOBIN 13.9 gm/dl (12.0-16.0); LYMPHOCYTES ABSOLUTE AUTO 1.6 K/mm3 (1.0-4.8); LYMPHOCYTES PERCENT AUTO 29.2 % (24.0-44.0); MEAN CORPUSCULAR HEMOGLOBIN 29.3 pg (28.0-32.0); MEAN CORPUSCULAR HGB CONC 33.8 g/dl (32.0-36.0); MEAN CORPUSCULAR VOLUME 86.7 fl (83.0-99.0); MEAN PLATELET VOLUME 9.1 fl (9.4-12.3); MONOCYTES ABSOLUTE AUTO 0.4 K/mm3 (0.0-0.8); MONOCYTES PERCENT AUTO 7.5 % (0.0-8.0); NEUTROPHILS ABSOLUTE AUTO 3.4 K/mm3 (1.8-7.7); NEUTROPHILS PERCENT AUTO 60.3 % (41.0-71.0); PLATELET COUNT,PLT 249 K/mm3 (150-400); RED BLOOD CELL COUNT 4.74 M/mm3 (4.10-5.30); WHITE BLOOD CELL COUNT,WBC 5.62 K/mm3 (3.9-11.3)
[2024-04-04] MEDS: LORazepam 2 MG/ML SDV IVPUSH ONE (22:45)
[2024-04-04 23:05] LABS: A/G RATIO 1.2 (1-2); ALBUMIN 3.6 g/dl (3.4-5.0); ANION GAP 13.8 (5-15); BILIRUBIN TOTAL 0.3 mg/dL (0.2-1.0); BUN/CREATININE RATIO 26.3 (14-18); CALCIUM 8.8 mg/dL (8.5-10.1); CREATININE 0.8 mg/dL (0.55-1.02); EST CRCL DRUG DOSING (CG) 59.89 mL/min; MAGNESIUM 1.9 mg/dL (1.8-2.4); POTASSIUM,K 3.8 mEq/L (3.5-5.1); PROTEIN TOTAL,TP 6.7 g/dl (6.4-8.2)
[2024-04-05] MEDS: LORazepam 2 MG/ML SDV IVPUSH ONE (00:01)
== END 2024-04-05 02:49 | disposition home or self-care (01) ==
LOC: JD.ED 21:26
DX: R56.9 Unspecified convulsions (principal); F15.93 Other stimulant use, unspecified with withdrawal; I10 Essential (primary) hypertension; E78.00 Pure hypercholesterolemia, unspecified; E03.9 Hypothyroidism, unspecified; Z88.8 Allergy status to other drugs, medicaments and biological substances; Z79.899 Other long term (current) drug therapy; Z90.49 Acquired absence of other specified parts of digestive tract; Z87.891 Personal history of nicotine dependence
CPT/HCPCS: 36415; 70450; 80053; 83735; 84484; 85025; 93005; 96374; 96376; 99285; J2060